=== PATIENT | male | born 1945 | race Caucasian/White ===

== ENCOUNTER → 2019-11-15 | Outpatient (CLI) | payer MEDICARE, OTHER | END | disposition home or self-care (01) | LOC: PLD 08:07 → LAB SHORT 08:07 | DX: C44.319 Basal cell carcinoma of skin of other parts of face (principal); D04.4 Carcinoma in situ of skin of scalp and neck; C44.42 Squamous cell carcinoma of skin of scalp and neck | CPT/HCPCS: 88305 ==